=== PATIENT | female | born 2005 | race Caucasian/White ===

== ENCOUNTER 2025-03-06 18:56 | Emergency (ER) | payer OTHER ==
[~2025-03-06] VITALS: Ht 160 cm; Wt 48.6 kg
[2025-03-06] MEDS: KETOROLAC TROMETHAMINE 30 MG/ML VIAL IM ONE (20:35)
[2025-03-06 22:05] VITALS: BP 94/52; PULSE 83; RESP 16; TEMP 98.8; O2SAT 99
== END 2025-03-06 22:47 | disposition home or self-care (01) ==
LOC: EMS 18:56
DX: S40.012A Contusion of left shoulder, initial encounter (principal); R51.9 Headache, unspecified; Y08.89XA Assault by other specified means, initial encounter; Y93.89 Activity, other specified; Y92.89 Other specified places as the place of occurrence of the external cause; Y99.8 Other external cause status
CPT/HCPCS: 99284; 84703; 73030; 96372; J1885